=== PATIENT | male | born 1970 | race Caucasian/White ===

== ENCOUNTER 2017-05-19 12:05 | Emergency (ER) | payer MEDICAID, OTHER ==
[~2017-05-19] VITALS: Ht 195.6 cm; Wt 100.0 kg
[~2017-05-19 12:05] MED LIST: HALOD50I IM; LITH600 PO
[2017-05-19] MEDS ORDERED: DOXYCYCLINE 100 MG CAPSULE PO ONE (13:15)
[2017-05-19] MEDS ORDERED: LIDOCAINE HCL 1% 10 ML VIAL INJ ONE (13:15)
[2017-05-19] MEDS ORDERED: LIDOCAINE HCL 2%/EPI 1:200,000/PF 20 ML VIAL INJ ONE (13:15)
[2017-05-19] MEDS ORDERED: POVIDONE-IODINE 10% 15 ML SOLUTION UD TP ONE (13:15)
[2017-05-19] MEDS ORDERED: OxyCODONE HCL/ACETAMINOPHEN 5-325 MG TABLET PO ONE (13:30)
[2017-05-19 15:25] VITALS: BP 132/93
== END 2017-05-19 16:13 | disposition home or self-care (01) ==
LOC: EMS 12:06
DX: L02.512 Cutaneous abscess of left hand (principal); F17.210 Nicotine dependence, cigarettes, uncomplicated; Z88.8 Allergy status to other drugs, medicaments and biological substances
CPT/HCPCS: 26010; 73140; 99284; J3490

== ENCOUNTER 2017-07-13 14:00 | Inpatient (IN) | payer MEDICAID ==
[~2017-07-13 14:00] MED LIST changes: -LITH600 PO
[2017-07-13 14:24] VITALS: BP 116/70
[2017-07-13] MEDS ORDERED: BENZ1TAB10 PO (14:48)
[2017-07-13] MEDS ORDERED: HALO100A IM (14:48)
[2017-07-13] MEDS ORDERED: PALI234D IM (14:48)
[2017-07-13] MEDS ORDERED: TOLT2TAB2 PO (14:48)
[2017-07-13] MEDS: LORazepam 2 MG TABLET PO PRN (15:22)
[2017-07-13] MEDS: HALOPERIDOL 5 MG TABLET PO PRN (15:22)
[2017-07-13 16:00] VITALS: BP 104/76
[2017-07-14] MEDS: LORazepam 2 MG TABLET PO PRN ×4 (02:20→22:16)
[2017-07-14] MEDS: ZOLPIDEM TARTRATE 10 MG TABLET PO PRN ×2 (02:20→22:16)
[2017-07-14 02:22] VITALS: BP 122/88
[2017-07-14 08:37] VITALS: BP 143/83
[2017-07-14] MEDS ORDERED: ARIPiprazole 10 MG TABLET PO SCH (09:00)
[2017-07-14 09:12] LABS: BASOPHILS % (AUTO) 0.9 % (0.0-2.0); EOSINOPHILS % (AUTO) 2.3 % (1.0-6.0); HEMATOCRIT 39.8 % (41-53); HEMOGLOBIN 13.2 g/dL (13.5-17.5); LYMPHOCYTES # (AUTO) 1.1 K/uL (1.0-4.8); MEAN CORPUSCULAR HGB CONC 33.1 G/dL (31.0-37.0); MEAN CORPUSCULAR VOLUME 88 fL (80-100); MONOCYTES # (AUTO) 0.7 K/uL (0.1-1.0); MONOCYTES % (AUTO) 7.3 % (2.0-9.0); NEUTROPHILS # (AUTO) 7.9 K/uL (1.8-7.7); NEUTROPHILS % (AUTO) 78.5 % (40.0-70.0); PLATELET COUNT (AUTO) 477 K/uL (150-450); RED BLOOD CELL COUNT(AUTO) 4.54 MIL/uL (4.50-5.90)
[2017-07-14 09:38] LABS: AMPHET/METH SCREEN,URINE NEGATIVE (NEGATIVE); BARBITURATE SCREEN, URINE NEGATIVE (NEGATIVE); BENZODIAZEPINES SCREEN,URINE NEGATIVE (NEGATIVE); CANNABINOID SCREEN,URINE NEGATIVE (NEGATIVE); COCAINE SCREEN,URINE NEGATIVE (NEGATIVE); METHADONE SCREEN, URINE NEGATIVE (NEGATIVE); OPIATE SCREEN,URINE NEGATIVE (NEGATIVE)
[2017-07-14 09:39] LABS: HEMOGLOBIN A1C 5.8 % (4.5-6.2)
[2017-07-14 09:40] LABS: PHENCYCLIDINE SCREEN,URINE NEGATIVE (NEGATIVE)
[2017-07-14 09:43] LABS: APPEARANCE,URINE CLEAR (CLEAR); BILIRUBIN,URINE NEGATIVE (NEGATIVE); GLUCOSE, URINE (UA) NEGATIVE (NEGATIVE); KETONES,URINE NEGATIVE (NEGATIVE); LEUKOCYTE ESTERASE ,URINE TRACE (NEGATIVE); NITRATE,URINE NEGATIVE (NEGATIVE); OCCULT BLOOD,URINE NEGATIVE (NEGATIVE); PROTEIN,URINE NEGATIVE (NEGATIVE); UROBILINOGEN,URINE 0.2 mg/dL (<=1.0)
[2017-07-14 09:48] LABS: RBC,URINE None Seen /HPF (0-2)
[2017-07-14 09:49] LABS: BACTERIA,URINE None Seen /HPF (None Seen); SQUAMOUS EPITHELIAL CELL,UR Few /LPF (None Seen)
[2017-07-14 09:54] LABS: ALANINE AMINOTRANSFERASE 22 U/L (12-78); ALBUMIN 3.3 g/dL (3.4-5.0); ALKALINE PHOSPHATASE 111 U/L (46-116); ANION GAP 7 mmol/L (8-16); ASPARTATE AMINOTRANSFERASE 15 U/L (15-37); BILIRUBIN,TOTAL 0.3 mg/dL (0.1-1.0); CALCIUM, TOTAL 9.1 mg/dL (8.8-10.5); CARBON DIOXIDE 29 mmol/L (22-29); CHLORIDE 106 mmol/L (98-107); CHOL/HDL RATIO 3.5 (4.2-7.3); CHOLESTEROL 108 mg/dL (131-200); CREATININE 1.04 mg/dL (0.60-1.30); FREE T4 (FREE THYROXINE) 1.32 ng/dL (0.76-1.46); GLOMERULAR FILTR. RATE CALC > 60 mL/min (>60); GLUCOSE,RANDOM 103 mg/dL (70-110); HDL CHOLESTEROL 31 mg/dL (40-60); LDL CHOL (CALC.) 68 mg/dL (0-130); POTASSIUM 4.1 mmol/L (3.5-5.1); SODIUM SERUM 142 mmol/L (136-145); THYROID STIMULATING HORMONE 1.32 uIU/mL (0.36-3.74); TRIGLYCERIDES 43 mg/dL (15-150); UREA NITROGEN, BLOOD 17 mg/dL (7-18)
[2017-07-14 16:05] VITALS: BP 123/75
[2017-07-14] MEDS: HALOPERIDOL 5 MG TABLET PO PRN (16:18)
[2017-07-14] MEDS ORDERED: ACETAMINOPHEN 325 MG TABLET PO PRN (19:30)
[2017-07-14] MEDS ORDERED: PETROLATUM,WHITE 71 GM JELLY TP PRN (19:30)
[2017-07-14] MEDS ORDERED: MAG HYDROX/AL HYDROX/SIMETH ES 30 ML SUSPENSION UDCUP PO PRN (19:30)
[2017-07-14] MEDS ORDERED: BENZOCAINE/MENTHOL LOZENGE MM PRN (19:30)
[2017-07-14] MEDS ORDERED: CloNIDine HCL 0.1 MG TABLET PO PRN (19:30)
[2017-07-14] MEDS ORDERED: LOPERAMIDE HCL 2 MG CAPSULE PO PRN (19:30)
[2017-07-14] MEDS ORDERED: MAGNESIUM HYDROXIDE SUSPENSION 30 ML UDCUP PO PRN (19:30)
[2017-07-14] MEDS ORDERED: ALBUTEROL SULFATE HFA 90 MCG/PUFF 8 GM INHALER IH PRN (19:30)
[2017-07-14] MEDS ORDERED: ONDANSETRON HCL 4 MG TABLET PO PRN (19:30)
[2017-07-14] MEDS: ASPIRIN 81 MG EC TABLET PO SCH (20:51)
[2017-07-15 01:15] VITALS: BP 119/60
[2017-07-15] MEDS: OMEPRAZOLE 20 MG CAPSULE PO SCH (08:13)
[2017-07-15] MEDS: HALOPERIDOL 5 MG TABLET PO PRN ×2 (08:13→17:03)
[2017-07-15] MEDS: DOCUSATE SODIUM 100 MG CAPSULE PO SCH (08:13)
[2017-07-15] MEDS: ASPIRIN 81 MG EC TABLET PO SCH (08:13)
[2017-07-15] MEDS: LORazepam 2 MG TABLET PO PRN ×2 (08:17→17:03)
[2017-07-15 08:26] VITALS: BP 131/76
[2017-07-15 08:40] LABS: BAND NEUTROPHILS % (MANUAL) 0 % (0-5)
[2017-07-15 08:51] LABS: HEMATOCRIT 38.1 % (41-53); MEAN CORPUSCULAR HEMOGLOBIN 29.7 pg (26.0-34.0); MEAN CORPUSCULAR VOLUME 87 fL (80-100); PLATELET COUNT (AUTO) 428 K/uL (150-450); RED BLOOD CELL COUNT(AUTO) 4.36 MIL/uL (4.50-5.90); RED CELL DISTRIBUTION WIDTH 14.1 % (11.5-14.5)
[2017-07-15] MEDS ORDERED: ARIPiprazole 10 MG TABLET PO SCH (09:00)
[2017-07-15 09:13] LABS: ANION GAP 8 mmol/L (8-16); CALCIUM, TOTAL 8.9 mg/dL (8.8-10.5); CARBON DIOXIDE 28 mmol/L (22-29); CHLORIDE 106 mmol/L (98-107); CREATININE 0.99 mg/dL (0.60-1.30); GLOMERULAR FILTR. RATE CALC > 60 mL/min (>60); GLUCOSE,RANDOM 90 mg/dL (70-110); PHOSPHORUS 3.5 mg/dL (2.5-4.9); POTASSIUM 4.1 mmol/L (3.5-5.1); SODIUM SERUM 142 mmol/L (136-145); UREA NITROGEN, BLOOD 21 mg/dL (7-18)
[2017-07-15 10:27] LABS: BASOPHILS % (MANUAL) 1 % (0-2); EOSINOPHILS % (MANUAL) 3 % (1-6); LYMPHOCYTES % (MANUAL) 20 % (22-44); MONOCYTES % (MANUAL) 5 % (2-9); SEGMENTED NEUTROPHILS % 71 % (40-70)
[2017-07-15 16:09] VITALS: BP 142/75
[2017-07-15] MEDS: ZOLPIDEM TARTRATE 10 MG TABLET PO PRN (21:09)
[2017-07-16 03:06] VITALS: BP 111/86
[2017-07-16 08:08] VITALS: BP 146/78
[2017-07-16] MEDS: DOCUSATE SODIUM 100 MG CAPSULE PO SCH (08:25)
[2017-07-16] MEDS: ASPIRIN 81 MG EC TABLET PO SCH (08:25)
[2017-07-16] MEDS: ARIPiprazole 10 MG TABLET PO SCH (08:25)
[2017-07-16] MEDS: OMEPRAZOLE 20 MG CAPSULE PO SCH (08:25)
[2017-07-16 16:25] VITALS: BP 117/64
[2017-07-16] MEDS: HALOPERIDOL 5 MG TABLET PO PRN ×2 (16:44→20:44)
[2017-07-16] MEDS: LORazepam 2 MG TABLET PO PRN ×2 (16:44→20:44)
[2017-07-16] MEDS: ZOLPIDEM TARTRATE 10 MG TABLET PO PRN (20:44)
[2017-07-17 01:26] VITALS: BP 124/82
[2017-07-17] MEDS: DOCUSATE SODIUM 100 MG CAPSULE PO SCH (07:55)
[2017-07-17] MEDS: ASPIRIN 81 MG EC TABLET PO SCH (07:55)
[2017-07-17] MEDS: OMEPRAZOLE 20 MG CAPSULE PO SCH (07:55)
[2017-07-17] MEDS: MULTIVITAMINS WITH IRON TABLET PO SCH (07:55)
[2017-07-17] MEDS: ARIPiprazole 10 MG TABLET PO SCH (07:56)
[2017-07-17] MEDS: LORazepam 2 MG TABLET PO PRN ×4 (07:58→21:23)
[2017-07-17] MEDS: HALOPERIDOL 5 MG TABLET PO PRN ×4 (08:20→21:23)
[2017-07-17 08:34] VITALS: BP 102/62
[2017-07-17] MEDS: IBUPROFEN 600 MG TABLET PO PRN (10:22)
[2017-07-17 16:20] VITALS: BP 126/70
[2017-07-17] MEDS: BACITRACIN 28.4 GM OINTMENT TP PRN (19:12)
[2017-07-17] MEDS: ZOLPIDEM TARTRATE 10 MG TABLET PO PRN (21:23)
[2017-07-18 06:07] VITALS: BP 119/66
[2017-07-18] MEDS: IBUPROFEN 600 MG TABLET PO PRN (06:43)
[2017-07-18 07:45] VITALS: BP 142/72
[2017-07-18 08:07] VITALS: BP 155/78
[2017-07-18] MEDS: DOCUSATE SODIUM 100 MG CAPSULE PO SCH (08:37)
[2017-07-18] MEDS: ASPIRIN 81 MG EC TABLET PO SCH (08:37)
[2017-07-18] MEDS: OMEPRAZOLE 20 MG CAPSULE PO SCH (08:37)
[2017-07-18] MEDS: MULTIVITAMINS WITH IRON TABLET PO SCH (08:37)
[2017-07-18] MEDS: ARIPiprazole 10 MG TABLET PO SCH (08:37)
[2017-07-18 12:39] VITALS: BP 129/87
[2017-07-18 16:08] VITALS: BP 131/73
[2017-07-18] MEDS: HALOPERIDOL 5 MG TABLET PO PRN (17:04)
[2017-07-18] MEDS: LORazepam 2 MG TABLET PO PRN (17:04)
[2017-07-18] MEDS: ZOLPIDEM TARTRATE 10 MG TABLET PO PRN (21:00)
[2017-07-19] MEDS: HALOPERIDOL 5 MG TABLET PO PRN ×3 (01:54→14:28)
[2017-07-19] MEDS: LORazepam 2 MG TABLET PO PRN ×3 (01:54→14:28)
[2017-07-19 03:47] VITALS: BP 115/76
[2017-07-19] MEDS: ARIPiprazole 15 MG TABLET PO SCH (08:25)
[2017-07-19] MEDS: OMEPRAZOLE 20 MG CAPSULE PO SCH (08:25)
[2017-07-19] MEDS: DOCUSATE SODIUM 100 MG CAPSULE PO SCH (08:25)
[2017-07-19] MEDS: ASPIRIN 81 MG EC TABLET PO SCH (08:25)
[2017-07-19] MEDS: MULTIVITAMINS WITH IRON TABLET PO SCH (08:25)
[2017-07-19 08:41] VITALS: BP 108/77
[2017-07-19] MEDS ORDERED: ARIPiprazole LAUROXIL ER SUSPENSION 882 MG/3.2 ML SYRINGE IM ONE (14:45)
[2017-07-19] MEDS: IBUPROFEN 600 MG TABLET PO PRN (15:59)
[2017-07-19 16:02] VITALS: BP 130/77
[2017-07-20] MEDS: HALOPERIDOL 5 MG TABLET PO PRN ×2 (03:18→17:12)
[2017-07-20] MEDS: LORazepam 2 MG TABLET PO PRN ×3 (03:18→17:12)
[2017-07-20 03:27] VITALS: BP 141/78
[2017-07-20 08:06] VITALS: BP 138/89
[2017-07-20] MEDS: DOCUSATE SODIUM 100 MG CAPSULE PO SCH (08:24)
[2017-07-20] MEDS: MULTIVITAMINS WITH IRON TABLET PO SCH (08:24)
[2017-07-20] MEDS: ASPIRIN 81 MG EC TABLET PO SCH (08:24)
[2017-07-20] MEDS: ARIPiprazole 15 MG TABLET PO SCH (08:24)
[2017-07-20] MEDS: OMEPRAZOLE 20 MG CAPSULE PO SCH (08:24)
[2017-07-20] MEDS: BACITRACIN 28.4 GM OINTMENT TP PRN (15:00)
[2017-07-20 16:00] VITALS: BP 135/69
[2017-07-20] MEDS: NYSTATIN 15 GM POWDER BOTTLE TP SCH (17:12)
[2017-07-21 02:15] VITALS: BP 132/82
[2017-07-21] MEDS: HALOPERIDOL 5 MG TABLET PO PRN ×3 (03:06→21:09)
[2017-07-21] MEDS: LORazepam 2 MG TABLET PO PRN ×4 (03:06→20:22)
[2017-07-21 08:00] VITALS: BP 136/75
[2017-07-21] MEDS: OMEPRAZOLE 20 MG CAPSULE PO SCH (08:34)
[2017-07-21] MEDS: NYSTATIN 15 GM POWDER BOTTLE TP SCH (08:34)
[2017-07-21] MEDS: ARIPiprazole 15 MG TABLET PO SCH (08:34)
[2017-07-21] MEDS: MULTIVITAMINS WITH IRON TABLET PO SCH (08:34)
[2017-07-21] MEDS: ASPIRIN 81 MG EC TABLET PO SCH (08:34)
[2017-07-21] MEDS: DOCUSATE SODIUM 100 MG CAPSULE PO SCH (08:34)
[2017-07-21] MEDS: BACITRACIN 28.4 GM OINTMENT TP PRN (08:54)
[2017-07-21 16:00] VITALS: BP 135/72
[2017-07-21] MEDS: ZOLPIDEM TARTRATE 10 MG TABLET PO PRN (20:22)
[2017-07-22 06:34] VITALS: BP 133/79
[2017-07-22 08:08] VITALS: BP 140/77
[2017-07-22] MEDS: OMEPRAZOLE 20 MG CAPSULE PO SCH (08:28)
[2017-07-22] MEDS: ASPIRIN 81 MG EC TABLET PO SCH (08:28)
[2017-07-22] MEDS: MULTIVITAMINS WITH IRON TABLET PO SCH (08:28)
[2017-07-22] MEDS: ARIPiprazole 15 MG TABLET PO SCH (08:28)
[2017-07-22] MEDS: DOCUSATE SODIUM 100 MG CAPSULE PO SCH (08:29)
[2017-07-22] MEDS: NYSTATIN 15 GM POWDER BOTTLE TP SCH (09:28)
[2017-07-22 16:09] VITALS: BP 138/82
[2017-07-22] MEDS: HALOPERIDOL 5 MG TABLET PO PRN (16:24)
[2017-07-22] MEDS: LORazepam 2 MG TABLET PO PRN ×2 (16:24→21:53)
[2017-07-22] MEDS: ZOLPIDEM TARTRATE 10 MG TABLET PO PRN (21:53)
[2017-07-23 05:01] VITALS: BP 132/78
[2017-07-23] MEDS: ARIPiprazole 15 MG TABLET PO SCH (08:14)
[2017-07-23] MEDS: MULTIVITAMINS WITH IRON TABLET PO SCH (08:14)
[2017-07-23] MEDS: OMEPRAZOLE 20 MG CAPSULE PO SCH (08:14)
[2017-07-23] MEDS: ASPIRIN 81 MG EC TABLET PO SCH (08:14)
[2017-07-23] MEDS: DOCUSATE SODIUM 100 MG CAPSULE PO SCH (08:14)
[2017-07-23] MEDS: NYSTATIN 15 GM POWDER BOTTLE TP SCH (08:14)
[2017-07-23 08:15] VITALS: BP 128/72
[2017-07-23] MEDS: LORazepam 2 MG TABLET PO PRN (11:51)
[2017-07-23] MEDS: HALOPERIDOL 5 MG TABLET PO PRN (15:48)
[2017-07-23 16:00] VITALS: BP 135/83
[2017-07-23] MEDS: ZOLPIDEM TARTRATE 10 MG TABLET PO PRN (20:41)
[2017-07-24] MEDS: HALOPERIDOL 5 MG TABLET PO PRN (02:54)
[2017-07-24 03:46] VITALS: BP 120/68
[2017-07-24 08:08] VITALS: BP 134/73
[2017-07-24] MEDS: MULTIVITAMINS WITH IRON TABLET PO SCH (08:21)
[2017-07-24] MEDS: DOCUSATE SODIUM 100 MG CAPSULE PO SCH (08:21)
[2017-07-24] MEDS: OMEPRAZOLE 20 MG CAPSULE PO SCH (08:21)
[2017-07-24] MEDS: ARIPiprazole 15 MG TABLET PO SCH (08:21)
[2017-07-24] MEDS: ASPIRIN 81 MG EC TABLET PO SCH (08:21)
[2017-07-24] MEDS: NYSTATIN 15 GM POWDER BOTTLE TP SCH (08:21)
[2017-07-24] MEDS: LORazepam 2 MG TABLET PO PRN ×2 (11:41→15:52)
[2017-07-24 16:00] VITALS: BP 134/88
[2017-07-24] MEDS: DIVALPROEX SODIUM 250 MG ER TABLET PO SCH (16:10)
[2017-07-24] MEDS: ZOLPIDEM TARTRATE 10 MG TABLET PO PRN (20:58)
[2017-07-25 08:09] VITALS: BP 131/76
[2017-07-25] MEDS: NYSTATIN 15 GM POWDER BOTTLE TP SCH (09:00)
[2017-07-25] MEDS: ARIPiprazole 15 MG TABLET PO SCH (09:19)
[2017-07-25] MEDS: MULTIVITAMINS WITH IRON TABLET PO SCH (09:19)
[2017-07-25] MEDS: DIVALPROEX SODIUM 250 MG ER TABLET PO SCH ×2 (09:19→16:20)
[2017-07-25] MEDS: ASPIRIN 81 MG EC TABLET PO SCH (09:19)
[2017-07-25] MEDS: DOCUSATE SODIUM 100 MG CAPSULE PO SCH (09:19)
[2017-07-25] MEDS: OMEPRAZOLE 20 MG CAPSULE PO SCH (09:20)
[2017-07-25 16:00] VITALS: BP 135/82
[2017-07-25] MEDS: HALOPERIDOL 5 MG TABLET PO PRN (16:20)
[2017-07-25] MEDS: LORazepam 2 MG TABLET PO PRN (16:20)
[2017-07-26 00:30] VITALS: BP 140/88
[2017-07-26] MEDS: LORazepam 2 MG TABLET PO PRN ×2 (00:52→09:09)
[2017-07-26] MEDS: HALOPERIDOL 5 MG TABLET PO PRN ×2 (00:52→09:09)
[2017-07-26] MEDS: ZOLPIDEM TARTRATE 10 MG TABLET PO PRN (00:53)
[2017-07-26 08:00] VITALS: BP 124/70
[2017-07-26 08:33] LABS: BASOPHILS % (AUTO) 0.9 % (0.0-2.0); HEMATOCRIT 38.7 % (41-53); LYMPHOCYTES # (AUTO) 0.7 K/uL (1.0-4.8); LYMPHOCYTES % (AUTO) 8.3 % (22.0-44.0); MEAN CORPUSCULAR HEMOGLOBIN 28.7 pg (26.0-34.0); MEAN CORPUSCULAR HGB CONC 33.5 G/dL (31.0-37.0); MEAN CORPUSCULAR VOLUME 86 fL (80-100); MONOCYTES # (AUTO) 0.8 K/uL (0.1-1.0); MONOCYTES % (AUTO) 9.8 % (2.0-9.0); NEUTROPHILS # (AUTO) 6.6 K/uL (1.8-7.7); PLATELET COUNT (AUTO) 379 K/uL (150-450); RED BLOOD CELL COUNT(AUTO) 4.52 MIL/uL (4.50-5.90); RED CELL DISTRIBUTION WIDTH 14.5 % (11.5-14.5)
[2017-07-26] MEDS: ASPIRIN 81 MG EC TABLET PO SCH (09:09)
[2017-07-26] MEDS: ARIPiprazole 15 MG TABLET PO SCH (09:09)
[2017-07-26] MEDS: DIVALPROEX SODIUM 250 MG ER TABLET PO SCH ×2 (09:09→16:46)
[2017-07-26] MEDS: NYSTATIN 15 GM POWDER BOTTLE TP SCH (09:09)
[2017-07-26] MEDS: DOCUSATE SODIUM 100 MG CAPSULE PO SCH (09:09)
[2017-07-26] MEDS: OMEPRAZOLE 20 MG CAPSULE PO SCH (09:09)
[2017-07-26] MEDS: MULTIVITAMINS WITH IRON TABLET PO SCH (09:09)
[2017-07-26 09:36] LABS: ALANINE AMINOTRANSFERASE 25 U/L (12-78); ALKALINE PHOSPHATASE 94 U/L (46-116); ANION GAP 6 mmol/L (8-16); ASPARTATE AMINOTRANSFERASE 17 U/L (15-37); BILIRUBIN,TOTAL 0.2 mg/dL (0.1-1.0); CALCIUM, TOTAL 8.6 mg/dL (8.8-10.5); CARBON DIOXIDE 30 mmol/L (22-29); CHLORIDE 106 mmol/L (98-107); CREATININE 1.08 mg/dL (0.60-1.30); GLOMERULAR FILTR. RATE CALC > 60 mL/min (>60); GLUCOSE,RANDOM 106 mg/dL (70-110); POTASSIUM 4.1 mmol/L (3.5-5.1); SODIUM SERUM 142 mmol/L (136-145); TOTAL PROTEIN, SERUM 7.4 g/dL (6.4-8.2); UREA NITROGEN, BLOOD 17 mg/dL (7-18); VALPROIC ACID 20 mcg/mL (50-100)
[2017-07-26] MEDS ORDERED: DIVA250T45 PO (12:15)
[2017-07-26] MEDS ORDERED: ARIP15TA2 PO (12:15)
[2017-07-26 16:00] VITALS: BP 135/84
== END 2017-07-26 17:20 | disposition home or self-care (01) | DRG 750 ==
LOC: B3A 14:28
PROVIDERS: ADMIT Psychiatry & Neurology Psychiatry; ATTEND Psychiatry & Neurology Psychiatry
DX: F20.0 Paranoid schizophrenia (principal); Z91.19 Patient's noncompliance with other medical treatment and regimen; F41.9 Anxiety disorder, unspecified; F17.200 Nicotine dependence, unspecified, uncomplicated; K59.00 Constipation, unspecified; Z71.6 Tobacco abuse counseling
CPT/HCPCS: 80307; 83036; 83735; 84100; 84439; 84443; 85007